=== PATIENT | female | born 1985 | race Caucasian/White ===

== ENCOUNTER 2020-06-05 04:55 | Emergency (ER) | payer MEDICAID ==
[~2020-06-05] VITALS: Ht 157.5 cm; Wt 63.5 kg
[2020-06-05 04:57] VITALS: BP 144/87
[2020-06-05] MEDS ORDERED: DIPH,PERTUSS(ACELL),TET VAC/PF 0.5 ML IM-VACC ONE ×2 (05:11→05:30)
[2020-06-05] MEDS ORDERED: LIDOCAINE-MPF 1%, 2ML ONE (05:11)
--- NOTE | 2020-06-05 05:15 | NUR ---
assumed care of pt. pt here for laceration to R hand after cutting it while tryng to cut pork chops last nocs. pt reports that is has been bleeding all night. wound is currently oozing. no loss of sensation. no other injuries. pt medicated per order. Kristine GARCIA at bedside to administer xylocaine
--- NOTE | 2020-06-05 05:25 | NUR ---
EMT at bedside for wound irrigation
[2020-06-05] MEDS ORDERED: LIDOCAINE-MPF 1%, 5ML INFIL ONE (05:30)
[2020-06-05] MEDS ORDERED: NEOSPORIN OINT. PKT 1 PACKET ONE (06:00)
== END 2020-06-05 06:13 | disposition home or self-care (01) ==
LOC: ED 05:25
DX: S61.210A Laceration without foreign body of right index finger without damage to nail, initial encounter (principal); Z79.899 Other long term (current) drug therapy; W26.0XXA Contact with knife, initial encounter; Y93.89 Activity, other specified; Y92.098 Other place in other non-institutional residence as the place of occurrence of the external cause; Y99.8 Other external cause status
CPT/HCPCS: 12041; 90471; 90715; 99284

== ENCOUNTER 2020-07-14 13:26 | Emergency (ER) | payer MEDICAID ==
[~2020-07-14] VITALS: Ht 157.5 cm; Wt 62.9 kg
--- NOTE | 2020-07-14 14:14 | NUR ---
TRAFFIC OFFICER: PT TO ROOM FROM AAMIR ROCHA
--- NOTE | 2020-07-14 14:32 | NUR ---
BREAK RN: PT C/O SHAKINESS TODAY AND SORES ON HER TOUNGE. VS STABLE. NO ACUTE DISTRESS NOTED. PT ALSO REPORTS SHE QUIT DRINKING RECENTLY. CALL LIGHT IN PLACE. WILL CONTINUE TO MONITOR.
[2020-07-14] MEDS ORDERED: LORazepam 2 MG/ML, 1ML IVPush ONE ×2 (15:00→17:00)
[2020-07-14] MEDS ORDERED: SODIUM CHLORIDE FLUSH 10ML SYR IVF ONE (15:00)
[2020-07-14] MEDS ORDERED: SODIUM CHLORIDE 0.9% 1,000ML IVBOLUS ONE (15:00)
[2020-07-14] MEDS ORDERED: LORazepam 2 MG/ML, 1ML ONE ×2 (15:08→16:31)
--- NOTE | 2020-07-14 15:16 | NUR ---
REPORT GIVEN TO CORAZON CARBAJAL
[2020-07-14 15:38] LABS: BASOPHILS # (AUTO) 0.02 x10^3/uL (0-0.1); BASOPHILS % (AUTO) 0 % (0-1); EOSINOPHILS # (AUTO) 0.02 x10^3/uL (0-0.4); EOSINOPHILS % (AUTO) 0 % (1-7); LYMPHOCYTES # (AUTO) 1.41 x10^3/uL (1-3.4); LYMPHOCYTES % (AUTO) 20 % (22-44); MD NO; MEAN CORPUSCULAR HEMOGLOBIN 33.7 pg (27.0-34.8); MEAN CORPUSCULAR HGB CONC 31.9 g/dL (32.4-35.8); MEAN PLATELET VOLUME 7.6 fL (7.4-10.4); MONOCYTES # (AUTO) 0.52 x10^3/uL (0.2-0.8); MONOCYTES % (AUTO) 7 % (2-9); NEUTROPHILS # (AUTO) 5.23 x10^3/uL (1.8-6.8); NEUTROPHILS % (AUTO) 73 % (42-75); PLATELET COUNT 190 x10^3/uL (130-400); RED BLOOD COUNT 3.57 x10^6/uL (3.82-5.3); RED CELL DISTRIBUTION WIDTH 15.3 % (9.6-15.2)
[2020-07-14 15:46] LABS: ALANINE AMINOTRANSFERASE 39 U/L (12-78); ANION GAP 7 mmol/L (5-15); CALCIUM 8.6 mg/dL (8.5-10.1); CHLORIDE 106 mmol/L (98-107)
[2020-07-14 15:51] LABS: ALKALINE PHOSPHATASE 55 U/L (45-117); BILIRUBIN,TOTAL 0.8 mg/dL (0.2-1.0); CREATINE KINASE, TOTAL 143 U/L (26-192); CREATININE 0.89 mg/dL (0.55-1.02); TOTAL PROTEIN 7.2 g/dL (6.4-8.2)
[2020-07-14 15:59] VITALS: BP 129/88
== END 2020-07-14 16:48 | disposition home or self-care (01) ==
LOC: ED 14:26
DX: F10.239 Alcohol dependence with withdrawal, unspecified (principal); R00.0 Tachycardia, unspecified; R25.1 Tremor, unspecified; Y90.0 Blood alcohol level of less than 20 mg/100 ml
CPT/HCPCS: 36415; 80053; 80307; 82550; 83690; 84703; 85025; 96361; 96374; 96376; 99284; J2060; J7030

== ENCOUNTER 2020-10-27 19:00 | Emergency (ER) | payer MEDICAID ==
[~2020-10-27] VITALS: Ht 157.5 cm; Wt 67.6 kg
[2020-10-27 19:03] VITALS: BP 102/58
== END 2020-10-27 20:45 | disposition home or self-care (01) ==
LOC: ED 20:39
DX: G89.11 Acute pain due to trauma (principal); M25.562 Pain in left knee; Z76.0 Encounter for issue of repeat prescription; X58.XXXA Exposure to other specified factors, initial encounter; Y93.89 Activity, other specified; Y92.89 Other specified places as the place of occurrence of the external cause; Y99.8 Other external cause status
CPT/HCPCS: 99283

== ENCOUNTER 2021-02-26 16:49 | Emergency (ER) | payer MEDICAID, OTHER ==
[~2021-02-26] VITALS: Ht 157.5 cm; Wt 65.7 kg
--- NOTE | 2021-02-26 17:56 | NUR ---
POLICE LIEUTENANT PATROL: CALLED FOR ROOM, NO ANSWER
[2021-02-26] MEDS ORDERED: LIDOCAINE-MPF 1%, 5ML INFIL ONE ×2 (18:00→19:00)
[2021-02-26] MEDS ORDERED: DIPH,PERTUSS(ACELL),TET VAC/PF 0.5 ML IM-VACC ONE ×3 (18:00→19:00)
--- NOTE | 2021-02-26 18:24 | NUR ---
TRUCK CRANE OPERATOR: PT TO ROOM FROM AAMIR ROCHA
--- NOTE | 2021-02-26 18:40 | NUR ---
Pt to room from lobby, pt cut finger at work by pinching it between two surfaces, no active bleeding at this time, med student at bedside to preform sutures.
[2021-02-26] MEDS ORDERED: LIDOCAINE-MPF 1%, 2ML ONE (18:45)
--- NOTE | 2021-02-26 18:50 | NUR ---
Report to Sherine CHANDRA
--- NOTE | 2021-02-26 18:57 | NUR ---
ERP AT BEDSIDE FOR SUTURES
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
[2021-02-26 19:40] VITALS: BP 107/77
--- NOTE | 2021-02-26 20:18 | NUR ---
PT STATES SHE HAS A LOT OF ANXIETY AND WANTS TO LEAVE NOW AND IS NOT WILLING TO WAIT FOR D/C PAPERWORK. THIS RN EXPLAINED IMPORTANCE OF COMMING BACK TO HAVE SUTURES REMOVED WITHIN THE NEXT 7-10 DAYS AND S/S OF INFECTION AND CARE OF WOUND. PT STATES UNDERSTANDING AND LEFT. ERP AWARE
== END 2021-02-26 20:21 | disposition home or self-care (01) ==
LOC: ED 20:00
DX: S61.210A Laceration without foreign body of right index finger without damage to nail, initial encounter (principal); S60.021A Contusion of right index finger without damage to nail, initial encounter; Z86.39 Personal history of other endocrine, nutritional and metabolic disease; X58.XXXA Exposure to other specified factors, initial encounter; Y93.89 Activity, other specified; Y92.69 Other specified industrial and construction area as the place of occurrence of the external cause; Y99.8 Other external cause status
CPT/HCPCS: 12001; 99283

== ENCOUNTER 2021-03-05 09:19 | Emergency (ER) | payer MEDICAID, OTHER ==
[~2021-03-05] VITALS: Ht 157.5 cm; Wt 67.0 kg
[2021-03-05 09:23] VITALS: BP 96/67
--- NOTE | 2021-03-05 09:55 | NUR ---
REPORTED TO LORETTA CHANDRA.
== END 2021-03-05 10:59 | disposition home or self-care (01) ==
LOC: ED 10:21
DX: S61.210D Laceration without foreign body of right index finger without damage to nail, subsequent encounter (principal); X58.XXXD Exposure to other specified factors, subsequent encounter
CPT/HCPCS: 99282

== ENCOUNTER 2021-04-16 16:23 | Emergency (ER) | payer MEDICAID, OTHER ==
--- NOTE | 2021-04-16 16:31 | NUR ---
ATTEMPT TO CALL PT FROM LOBBY TO TRIAGE. PT NIL X 1
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
[2021-04-16] MEDS ORDERED: SODIUM CHLORIDE 0.9% 1,000ML IVBOLUS ONE (17:30)
[2021-04-16 17:51] LABS: BASOPHILS % (AUTO) 1 % (0-1); EOSINOPHILS % (AUTO) 1 % (1-7); LYMPHOCYTES % (AUTO) 23 % (22-44); MEAN CORPUSCULAR HEMOGLOBIN 31.5 pg (27.0-34.8); MEAN CORPUSCULAR HGB CONC 34.5 g/dL (32.4-35.8); MEAN PLATELET VOLUME 7.3 fL (7.4-10.4); MONOCYTES % (AUTO) 7 % (2-9); NEUTROPHILS % (AUTO) 69 % (42-75); PLATELET COUNT 276 x10^3/uL (130-400); RED BLOOD COUNT 4.12 x10^6/uL (3.82-5.3); RED CELL DISTRIBUTION WIDTH 13.5 % (9.6-15.2)
[2021-04-16 17:59] LABS: ALANINE AMINOTRANSFERASE 20 U/L (12-78); ALBUMIN 3.1 g/dL (3.4-5.0); ANION GAP 7 mmol/L (5-15); CALCIUM 8.5 mg/dL (8.5-10.1); CHLORIDE 107 mmol/L (98-107); CREATININE 0.72 mg/dL (0.55-1.02)
[2021-04-16 18:15] LABS: MICROSCOPIC NOT IND
[2021-04-16 18:16] LABS: ALKALINE PHOSPHATASE 46 U/L (45-117); BILIRUBIN,TOTAL 0.1 mg/dL (0.2-1.0); TOTAL PROTEIN 6.3 g/dL (6.4-8.2)
--- NOTE | 2021-04-16 18:55 | NUR ---
GAVE REPORT TO DONNIE CHANDRA TO ASSUME CARE.
--- NOTE | 2021-04-16 19:01 | NUR ---
RECEIVED BEDSIDE REPORT FROM JEZ CHANDRA. PT RESTING IN BED. ATTACHED TO MONITORS. VSS. NADN BED IN LOW POSITION, RAILS ENGAGED. CALL LIGHT ON LAP.
[2021-04-16 19:42] VITALS: BP 93/56
== END 2021-04-16 19:49 | disposition home or self-care (01) ==
LOC: ED 16:53
DX: O9A.211 Injury, poisoning and certain other consequences of external causes complicating pregnancy, first trimester (principal); R10.2 Pelvic and perineal pain; Z86.39 Personal history of other endocrine, nutritional and metabolic disease; Z3A.01 Less than 8 weeks gestation of pregnancy; V49.49XA Driver injured in collision with other motor vehicles in traffic accident, initial encounter; Y93.89 Activity, other specified; Y92.410 Unspecified street and highway as the place of occurrence of the external cause; Y99.8 Other external cause status
CPT/HCPCS: 36415; 76801; 80053; 81003; 84702; 85025; 96360; 96361; 99284; J7030

== ENCOUNTER 2021-04-27 20:14 | Emergency (ER) | payer MEDICAID ==
[~2021-04-27] VITALS: Ht 157.5 cm; Wt 66.0 kg
[2021-04-27 20:18] VITALS: BP 108/78
--- NOTE | 2021-04-27 21:59 | NUR ---
PT SITTING UP IN BED, A/OX4, ALL NEEDS IN REACH, CALL LIGHT IN REACH, NAD, PT REPORTS NO COMPLAINTS AT THIS TIME
--- NOTE | 2021-04-27 22:40 | NUR ---
MD AT BEDSIDE TO DISCUSS POC, PT AGREED, NAD AT THIS TIME, PT INFORMED TO RETURN TO ER FOR WORSTENING OR ANY CONCERNING SYMPTOMS
== END 2021-04-27 22:42 | disposition home or self-care (01) ==
LOC: ED 20:46
DX: O31.21X0 Continuing pregnancy after intrauterine death of one fetus or more, first trimester, not applicable or unspecified (principal); Z3A.01 Less than 8 weeks gestation of pregnancy
CPT/HCPCS: 36415; 76801; 84702; 99284

== ENCOUNTER 2021-06-23 01:40 | Emergency (ER) | payer MEDICAID ==
[~2021-06-23] VITALS: Ht 157.5 cm; Wt 68.0 kg
[2021-06-23] MEDS ORDERED: ACETAMINOPHEN 500 MG TABLET PO ONE (02:00)
[2021-06-23] MEDS ORDERED: ACETAMINOPHEN 500 MG TABLET ONE (02:06)
[2021-06-23 03:21] LABS: BASOPHILS % (AUTO) 0 % (0-1); EOSINOPHILS % (AUTO) 1 % (1-7); LYMPHOCYTES % (AUTO) 21 % (22-44); MEAN CORPUSCULAR HEMOGLOBIN 32.2 pg (27.0-34.8); MEAN CORPUSCULAR HGB CONC 33.9 g/dL (32.4-35.8); MEAN PLATELET VOLUME 8.2 fL (7.4-10.4); MONOCYTES % (AUTO) 7 % (2-9); NEUTROPHILS % (AUTO) 71 % (42-75); PLATELET COUNT 234 x10^3/uL (130-400); RED BLOOD COUNT 3.97 x10^6/uL (3.82-5.3); RED CELL DISTRIBUTION WIDTH 13.1 % (9.6-15.2)
[2021-06-23 03:26] LABS: ALBUMIN 2.9 g/dL (3.4-5.0); ANION GAP 7 mmol/L (5-15); CALCIUM 8.5 mg/dL (8.5-10.1); CHLORIDE 105 mmol/L (98-107); CREATININE 0.57 mg/dL (0.55-1.02)
[2021-06-23 04:24] VITALS: BP 96/62
[2021-06-23 04:27] VITALS: BP 96/62
--- NOTE | 2021-06-23 04:27 | NUR ---
TASK RN: RHOGAM GIVEN. CONSENT SIGNED PRIOR. VSS.
== END 2021-06-23 05:17 | disposition home or self-care (01) ==
LOC: ED 01:48
DX: O20.0 Threatened abortion (principal); Z3A.15 15 weeks gestation of pregnancy
CPT/HCPCS: 36415; 76815; 80048; 82040; 85025; 86850; 86900; 96372; 99284; J2790